=== PATIENT | female | born 1950 | race Caucasian/White ===

== ENCOUNTER 2024-01-28 18:12 | Emergency (ER) | payer MEDICARE, OTHER ==
[~2024-01-28] VITALS: Ht 170.2 cm; Wt 72.6 kg
[2024-01-28 18:28] VITALS: TEMP 98.1
[2024-01-28] MEDS: IV NS 0.9% 1,000 ML BAG IV ONE (19:00)
[2024-01-28 19:10] LABS: BASOPHILS % (AUTO) 0.5 % (0.0-2.0); EOSINOPHILS # (AUTO) 0.2 K/uL (0.0-0.7); EOSINOPHILS % (AUTO) 2.2 % (0.0-6.0); HEMATOCRIT 37 % (33-45); HEMOGLOBIN 12.2 g/dL (11.5-14.8); LYMPHOCYTES # (AUTO) 2.5 K/uL (0.8-4.8); LYMPHOCYTES % (AUTO) 36.8 % (20.0-44.0); MEAN CORPUSCULAR HEMOGLOBIN 29 PG (26.0-33.0); MEAN CORPUSCULAR HGB CONC 33 g/dl (31.0-36.0); MEAN CORPUSCULAR VOLUME 86 fL (82-100); MONOCYTES # (AUTO) 0.6 K/uL (0.1-1.30); MONOCYTES % (AUTO) 8.4 % (2.0-12.0); NEUTROPHILS # (AUTO) 3.6 K/uL (1.8-8.9); NEUTROPHILS % (AUTO) 52.1 % (43.0-81.0); PLATELET COUNT (AUTO) 263 K/uL (150-450); RED BLOOD CELL COUNT(AUTO) 4.24 MIL/uL (4.0-5.2); RED CELL DISTRIBUTION WIDTH 15.5 % (11.5-15.0); WHITE BLOOD COUNT (AUTO) 6.9 K/uL (4.3-11.0)
[2024-01-28 19:19] LABS: CARBON DIOXIDE 31 mmol/L (21-32); CHLORIDE 99 mmol/L (98-107); CREATININE 0.7 mg/dL (0.6-1.3); GLUCOSE 119 mg/dL (74-106); POTASSIUM 4.3 mmol/L (3.5-5.1); SODIUM SERUM 137 mmol/L (136-145); UREA NITROGEN, BLOOD 9 mg/dL (7-18)
[2024-01-28 19:50] LABS: INR 0.99 (0.91-1.10); PARTIAL THROMBOPLASTIN TIME 26.2 SEC (24.3-34.3); PROTHROMBIN TIME 10.5 SECS (9.2-11.1)
[2024-01-28] MEDS ORDERED: IV NS 0.9% 250 ML IV ONE (20:06)
[2024-01-28] MEDS ORDERED: IOHEXOL-300 100 ML VIAL IV ONE (20:06)
[2024-01-28] MEDS ORDERED: CT SWABBABLE VALVE TRANS SET 1 EA INFUS.SET MC ONE (20:07)
[2024-01-28 22:54] VITALS: BP 135/65; O2SAT 98
== END 2024-01-28 22:55 | disposition home or self-care (01) ==
LOC: ER 18:18
DX: R09.A2 Foreign body sensation, throat (principal); I10 Essential (primary) hypertension; E11.9 Type 2 diabetes mellitus without complications
CPT/HCPCS: 99285; 96360; 70491; 85025; 80048; 36415; 85730; J7030; J7050; Q9967